=== PATIENT | male | born 1935 | race Caucasian/White ===

== ENCOUNTER → 2017-05-25 | Outpatient (CLI) | payer OTHER ==
[~2017-05-25] MED LIST: ACET500 PO; AMOX500 PO; ARTTEAOPSB OP; BENGAY113 GM TOP; BENZ100A PO; CAPHYD PO; CITA20 PO; CLIN300 PO; CYAN1000 PO; CYAN500 PO; Cerovite Advan1 EACH PO; DIPH50 PO; DIVA500EC PO; DOXY100 PO; DULERA 100 MCG/13 GM INH; ERGO50000 PO; EXELON1 EACH TOP; Exelon1 EACH; FERR325 PO; FURO20 PO; FURO40 PO; GABA300 PO; Geritol Comple1 EACH; HYDCHL25 PO; Haldol 5 mg Tab5 MG PO; IBUP400 PO; IRON150C PO; Keflex500 MG PO; LAMO100 PO; LAMO50 PO; LISI5; LISI5 PO; LOPE2C PO; MELA3 PO; METF500; METF500 PO; METF850 PO; MULVITMINF PO; NAPR220 PO; NIFE30ER; NIFE60ER PO; NIFEDICAL PO; Neosporin + P28.3 GM TOP; Nifedical Xl60 MG; OMEP40CA12; OMEP40CA12 PO; OMEPRAZOLE MAGN20 MG PO; OSEL75CA PO; Omeprazole20 M1 PO; PAIN & FEVER500 MG PO; POTA10T PO; PRED5 PO; PROP80ER PO; Phenergan Vc-C120 ML PO; QUET25 PO; QUETIAPINE FUMA50 MG PO; ROBITUSSIN COU118 M1 PO; TAMS.4ER PO; TUSSIN DM CLEA; TUSSIN DM CLEA PO; Triamcinolone A15 G3; Tylenol325 MG PO; UROXATRAL PO; VITAMIN D250000 UNIT; Zithromax250 MG PO; [UNRECOGNIZED DRUG - CODE]; [UNRECOGNIZED DRUG - CODE] TOP; [UNRECOGNIZED DRUG - MIXTURE]; [UNRECOGNIZED DRUG - MIXTURE] TOP; [UNRECOGNIZED DRUG - OTHER] TOP
[2017-05-25 14:38] LABS: Source, Urine Clean Catch
[2017-05-25 15:22] LABS: Bilirubin, Urine Neg (Neg); Blood, Urine Neg (Neg); Glucose Qualitative, Urine Neg (Neg); Ketones, Urine Neg (Neg); Leukocyte Esterase, Urine Neg (Neg); Nitrite, Urine Neg (Neg); Protein, Urine Neg (Neg); Urobilinogen, Urine NORM (Normal)
[2017-05-25 15:37] LABS: Appearance, Urine Clear (Clear); Color, Urine Yellow (P-Yellow)
== END | disposition home or self-care (01) ==
LOC: LAB 14:37
PROVIDERS: Radiology Radiation Oncology
DX: C61 Malignant neoplasm of prostate (principal); R39.15 Urgency of urination; R30.0 Dysuria
CPT/HCPCS: 81003

== ENCOUNTER 2017-10-20 18:09 | Emergency (ER) | payer OTHER ==
[~2017-10-20] VITALS: Ht 172.7 cm; Wt 83.9 kg
[~2017-10-20 18:09] MED LIST changes: +ACET325; -Keflex500 MG PO; +LAMO100; +LOPE2C; -Neosporin + P28.3 GM TOP
[2017-10-20] MEDS ORDERED: QUET25 PO (19:22)
== END 2017-10-20 19:27 | disposition home or self-care (01) ==
LOC: ER 18:09
DX: R13.10 Dysphagia, unspecified (principal); I12.9 Hypertensive chronic kidney disease with stage 1 through stage 4 chronic kidney disease, or unspecified chronic kidney disease; E11.22 Type 2 diabetes mellitus with diabetic chronic kidney disease; N18.9 Chronic kidney disease, unspecified; J44.9 Chronic obstructive pulmonary disease, unspecified; F03.90 Unspecified dementia, unspecified severity, without behavioral disturbance, psychotic disturbance, mood disturbance, and anxiety; Z79.899 Other long term (current) drug therapy; Z87.891 Personal history of nicotine dependence

== ENCOUNTER 2017-11-03 00:18 | Emergency (ER) | payer OTHER ==
[~2017-11-03] VITALS: Ht 182.9 cm; Wt 83.9 kg
[~2017-11-03 00:18] MED LIST changes: -ACET325; -LAMO100; -LOPE2C
[2017-11-03 02:25] LABS: Calcium, Ionized (POC) 1.18 mmol/L (1.10-1.46); Chloride (POC) 105 mmol/L (98-108); Creatinine (POC) 1.9 mg/dL (0.8-1.3); Glucose (ISTAT POC) 126 mg/dL (70-99); Hemoglobin (POC) 10.5 g/dL (13.5-17.5); Potassium (POC) 4.6 mmol/L (3.5-5.5); Sodium (POC) 138 mmol/L (135-148); Total CO2 (POC) 22 mmol/L (21-32)
== END 2017-11-03 03:49 | disposition home or self-care (01) ==
LOC: ER 00:18
PROVIDERS: Emergency Medicine
DX: K58.0 Irritable bowel syndrome with diarrhea (principal); F41.9 Anxiety disorder, unspecified; Z79.899 Other long term (current) drug therapy; Z87.891 Personal history of nicotine dependence
CPT/HCPCS: 80047; 85014; 96360; 99283; J7030

== ENCOUNTER 2017-11-20 11:14 | Emergency (ER) | payer OTHER ==
[~2017-11-20] VITALS: Ht 180.3 cm; Wt 82.5 kg
[2017-11-20 12:06] LABS: BASOPHILS ABSOLUTE AUTO 0.03 K/mm3 (0.00-0.23); BASOPHILS PERCENT AUTO 0 % (0-2); EOSINOPHILS ABSOLUTE AUTO 0.54 K/mm3 (0.00-0.68); EOSINOPHILS PERCENT AUTO 7 % (0-6); Hematocrit 33.6 % (37.0-53.0); Hemoglobin 10.6 g/dL (13.5-17.5); IMMATURE GRAN ABSOLUTE AUTO 0.03 K/mm3 (0.00-0.10); IMMATURE GRAN PERCENT AUTO 0 % (0-1); LYMPHOCYTES ABSOLUTE AUTO 0.77 K/mm3 (0.84-5.20); LYMPHOCYTES PERCENT AUTO 10 % (21-46); MONOCYTES ABSOLUTE AUTO 1.21 K/mm3 (0.16-1.47); MONOCYTES PERCENT AUTO 16 % (4-13); Mean Corpuscular HGB 27.1 pg (26.0-34.0); Mean Corpuscular HGB Conc 31.5 g/dL (31.5-36.5); Mean Corpuscular Volume 86 fL (80-100); Mean Platelet Volume 10.3 fL (9.1-12.4); NEUTROPHILS ABSOLUTE AUTO 5.16 K/mm3 (1.96-9.15); NEUTROPHILS PERCENT AUTO 67 % (41-73); Platelet Count 119 K/mm3 (150-400); RDW Coefficient Variation 13.9 % (11.7-14.2); RDW Standard Deviation 43.3 fL (35.1-46.3); Red Blood Cell Count 3.91 M/mm3 (4.30-5.90); White Blood Cell Count 7.74 K/mm3 (4.00-11.30)
[2017-11-20 12:18] LABS: Albumin, Blood 3.7 g/dL (3.4-5.0); Albumin/Globulin Ratio 1.3 (0.8-1.8); Bilirubin, Total 0.9 mg/dL (0.1-1.0); Bun/Creatinine Ratio 19.6 (12.0-20.0); Calcium, Blood 8.6 mg/dL (8.5-10.1); Creatinine, Blood 1.58 mg/dL (0.60-1.20); Globulin, Blood 2.9 g/dL (2.2-4.0); Potassium, Blood 4.9 mmol/L (3.5-5.5); Total Protein, Blood 6.6 g/dL (6.4-8.2)
[2017-11-20 14:38] LABS: Source, Urine Clean Catch
[2017-11-20 14:54] LABS: Bilirubin, Urine Neg (Neg); Blood, Urine Neg (Neg); Glucose Qualitative, Urine Neg (Neg); Ketones, Urine Neg (Neg); Leukocyte Esterase, Urine Neg (Neg); Nitrite, Urine Neg (Neg); Protein, Urine Neg (Neg); Urobilinogen, Urine NORM (Normal)
[2017-11-20] MEDS ORDERED: Neosporin + P28.3 GM TOP (15:20)
[2017-11-20 15:31] LABS: Appearance, Urine Clear (Clear); Color, Urine Yellow (P-Yellow)
== END 2017-11-20 15:27 | disposition home or self-care (01) ==
LOC: ER 11:14
PROVIDERS: Emergency Medicine
DX: S41.111A Laceration without foreign body of right upper arm, initial encounter (principal); S51.811A Laceration without foreign body of right forearm, initial encounter; F41.9 Anxiety disorder, unspecified; E11.9 Type 2 diabetes mellitus without complications; F03.90 Unspecified dementia, unspecified severity, without behavioral disturbance, psychotic disturbance, mood disturbance, and anxiety; I10 Essential (primary) hypertension; Z79.899 Other long term (current) drug therapy; Z87.891 Personal history of nicotine dependence; W01.0XXA Fall on same level from slipping, tripping and stumbling without subsequent striking against object, initial encounter
CPT/HCPCS: 36415; 80053; 81003; 85025; 93005; 93010; 99283

== ENCOUNTER 2018-05-01 00:15 | Day surgery (SDC) | payer OTHER ==
[~2018-05-01 00:15] MED LIST changes: +Keflex500 MG PO; +Neosporin + P28.3 GM TOP
== END 2018-05-01 22:39 | disposition home or self-care (01) ==
LOC: WOUND 00:15
DX: Z85.46 Personal history of malignant neoplasm of prostate (principal); Z92.3 Personal history of irradiation; R31.0 Gross hematuria
CPT/HCPCS: G0463

== ENCOUNTER 2018-05-28 00:44 | Day surgery (SDC) | payer OTHER | END 2018-05-28 22:59 | disposition home or self-care (01) | LOC: HBO 00:44 | DX: N30.41 Irradiation cystitis with hematuria (principal); R31.0 Gross hematuria; Z85.46 Personal history of malignant neoplasm of prostate; Z92.3 Personal history of irradiation | CPT/HCPCS: 82947; G0277 ==

== ENCOUNTER 2018-05-29 00:31 | Day surgery (SDC) | payer OTHER | END 2018-05-29 22:34 | disposition home or self-care (01) | LOC: HBO 00:31 | DX: N30.41 Irradiation cystitis with hematuria (principal); R31.0 Gross hematuria; Z85.46 Personal history of malignant neoplasm of prostate; Z92.3 Personal history of irradiation | CPT/HCPCS: 82947; G0277 ==

== ENCOUNTER 2018-05-30 00:17 | Day surgery (SDC) | payer OTHER | END 2018-05-30 22:35 | disposition home or self-care (01) | LOC: HBO 00:17 | DX: N30.41 Irradiation cystitis with hematuria (principal); R31.0 Gross hematuria; Z85.46 Personal history of malignant neoplasm of prostate; Z92.3 Personal history of irradiation | CPT/HCPCS: 82947; G0277 ==

== ENCOUNTER 2018-05-31 00:21 | Day surgery (SDC) | payer OTHER | END 2018-05-31 23:56 | disposition home or self-care (01) | LOC: HBO 00:21 | DX: N30.41 Irradiation cystitis with hematuria (principal); Z85.46 Personal history of malignant neoplasm of prostate; Z92.3 Personal history of irradiation; R31.0 Gross hematuria | CPT/HCPCS: 82947; G0277 ==

== ENCOUNTER 2018-06-04 09:27 | Day surgery (SDC) | payer OTHER | END 2018-06-04 22:36 | disposition home or self-care (01) | LOC: HBO 09:27 | PROC: 5A05221 Extracorporeal Hyperbaric Oxygenation, Continuous (ICD-10-PCS; principal; 2018-06-04) | DX: N30.41 Irradiation cystitis with hematuria (principal); Z85.46 Personal history of malignant neoplasm of prostate; Z92.3 Personal history of irradiation; R31.0 Gross hematuria | CPT/HCPCS: 82947; G0463 ==

== ENCOUNTER 2018-06-21 09:45 | Day surgery (SDC) | payer OTHER | END 2018-06-21 22:46 | disposition home or self-care (01) | LOC: HBO 09:45 | DX: N30.41 Irradiation cystitis with hematuria (principal); R31.0 Gross hematuria; Z85.46 Personal history of malignant neoplasm of prostate; Z92.3 Personal history of irradiation | CPT/HCPCS: 82947; G0277 ==

== ENCOUNTER 2018-06-22 10:00 | Day surgery (SDC) | payer OTHER | END 2018-06-22 22:50 | disposition home or self-care (01) | LOC: HBO 10:00 | PROC: 5A05221 Extracorporeal Hyperbaric Oxygenation, Continuous (ICD-10-PCS; principal; 2018-06-22) | DX: N30.41 Irradiation cystitis with hematuria (principal); Z85.46 Personal history of malignant neoplasm of prostate; Z92.3 Personal history of irradiation | CPT/HCPCS: 82947; G0277 ==

== ENCOUNTER 2018-06-25 10:00 | Day surgery (SDC) | payer OTHER | END 2018-06-25 22:39 | disposition home or self-care (01) | LOC: HBO 10:00 → WOUND 13:06 → HBO 13:43 | PROC: 5A05221 Extracorporeal Hyperbaric Oxygenation, Continuous (ICD-10-PCS; principal; 2018-06-25) | DX: N30.41 Irradiation cystitis with hematuria (principal); Z85.46 Personal history of malignant neoplasm of prostate; Z92.3 Personal history of irradiation; R31.0 Gross hematuria | CPT/HCPCS: 82947; G0277 ==

== ENCOUNTER 2018-06-26 00:33 | Day surgery (SDC) | payer OTHER | END 2018-06-26 22:36 | disposition home or self-care (01) | LOC: HBO 00:33 | DX: N30.41 Irradiation cystitis with hematuria (principal); Z85.46 Personal history of malignant neoplasm of prostate; Z92.3 Personal history of irradiation; R31.0 Gross hematuria | CPT/HCPCS: 82947; G0277 ==

== ENCOUNTER 2018-06-27 00:25 | Day surgery (SDC) | payer OTHER | END 2018-06-27 22:45 | disposition home or self-care (01) | LOC: HBO 00:25 | DX: N30.41 Irradiation cystitis with hematuria (principal); Z85.46 Personal history of malignant neoplasm of prostate; Z92.3 Personal history of irradiation; R31.0 Gross hematuria; R79.9 Abnormal finding of blood chemistry, unspecified | CPT/HCPCS: 82947; G0277 ==

== ENCOUNTER 2018-06-28 10:00 | Day surgery (SDC) | payer OTHER | END 2018-06-28 22:44 | disposition home or self-care (01) | LOC: HBO 10:00 | DX: N30.41 Irradiation cystitis with hematuria (principal); R31.0 Gross hematuria; Z85.46 Personal history of malignant neoplasm of prostate; Z92.3 Personal history of irradiation | CPT/HCPCS: 82947; G0277 ==

== ENCOUNTER 2018-06-29 09:20 | Day surgery (SDC) | payer OTHER | END 2018-06-29 23:08 | disposition home or self-care (01) | LOC: HBO 09:20 | DX: N30.41 Irradiation cystitis with hematuria (principal); R31.0 Gross hematuria; Z85.46 Personal history of malignant neoplasm of prostate; Z92.3 Personal history of irradiation; Z79.899 Other long term (current) drug therapy | CPT/HCPCS: 82947; G0277 ==

== ENCOUNTER 2018-07-02 00:28 | Day surgery (SDC) | payer OTHER | END 2018-07-02 22:58 | disposition home or self-care (01) | LOC: HBO 00:28 | DX: N30.41 Irradiation cystitis with hematuria (principal); Z85.46 Personal history of malignant neoplasm of prostate; Z92.3 Personal history of irradiation; R31.0 Gross hematuria; Z79.899 Other long term (current) drug therapy | CPT/HCPCS: 82947; G0277 ==

== ENCOUNTER 2018-07-03 00:10 | Day surgery (SDC) | payer OTHER | END 2018-07-03 22:40 | disposition home or self-care (01) | LOC: HBO 00:10 | DX: N30.41 Irradiation cystitis with hematuria (principal); Z85.46 Personal history of malignant neoplasm of prostate; Z92.3 Personal history of irradiation; R31.0 Gross hematuria; Z79.899 Other long term (current) drug therapy | CPT/HCPCS: 82947; G0277 ==

== ENCOUNTER 2018-07-04 00:30 | Day surgery (SDC) | payer OTHER | END 2018-07-04 22:37 | disposition home or self-care (01) | LOC: HBO 00:30 | DX: R31.0 Gross hematuria (principal); N30.41 Irradiation cystitis with hematuria; Z85.46 Personal history of malignant neoplasm of prostate; Z92.3 Personal history of irradiation; Z79.899 Other long term (current) drug therapy | CPT/HCPCS: 82947; G0277 ==

== ENCOUNTER 2018-07-05 00:14 | Day surgery (SDC) | payer OTHER | END 2018-07-05 22:35 | disposition home or self-care (01) | LOC: HBO 00:14 | DX: N30.41 Irradiation cystitis with hematuria (principal); Z85.46 Personal history of malignant neoplasm of prostate; Z92.3 Personal history of irradiation; Z79.899 Other long term (current) drug therapy; R31.0 Gross hematuria | CPT/HCPCS: 82947; G0277 ==

== ENCOUNTER 2018-07-06 10:00 | Day surgery (SDC) | payer OTHER | END 2018-07-06 23:13 | disposition home or self-care (01) | LOC: HBO 10:00 | DX: N30.41 Irradiation cystitis with hematuria (principal); R31.0 Gross hematuria; Z85.46 Personal history of malignant neoplasm of prostate; Z92.3 Personal history of irradiation; Z79.899 Other long term (current) drug therapy | CPT/HCPCS: 82947; G0277 ==

== ENCOUNTER 2018-07-12 10:00 | Day surgery (SDC) | payer OTHER | END 2018-07-13 13:10 | disposition home or self-care (01) | LOC: HBO 10:00 | DX: N30.41 Irradiation cystitis with hematuria (principal); R31.0 Gross hematuria; Z85.46 Personal history of malignant neoplasm of prostate; Z92.3 Personal history of irradiation; Z79.899 Other long term (current) drug therapy | CPT/HCPCS: 82947; G0277 ==

== ENCOUNTER 2018-07-13 09:11 | Day surgery (SDC) | payer OTHER | END 2018-07-13 12:00 | disposition home or self-care (01) | LOC: HBO 09:11 | DX: N30.41 Irradiation cystitis with hematuria (principal); R31.0 Gross hematuria; R73.09 Other abnormal glucose; Z85.46 Personal history of malignant neoplasm of prostate; Z92.3 Personal history of irradiation | CPT/HCPCS: 82947; G0277 ==

== ENCOUNTER 2018-07-24 00:18 | Day surgery (SDC) | payer OTHER | END 2018-07-24 22:37 | disposition home or self-care (01) | LOC: HBO 00:18 | DX: N30.41 Irradiation cystitis with hematuria (principal); Z85.46 Personal history of malignant neoplasm of prostate; Z92.3 Personal history of irradiation; R31.0 Gross hematuria | CPT/HCPCS: 82947; G0277 ==

== ENCOUNTER 2018-07-25 08:55 | Day surgery (SDC) | payer OTHER | END 2018-07-25 22:46 | disposition home or self-care (01) | LOC: HBO 08:55 | DX: N30.41 Irradiation cystitis with hematuria (principal); Z85.46 Personal history of malignant neoplasm of prostate; Z92.3 Personal history of irradiation | CPT/HCPCS: 82947; G0277 ==

== ENCOUNTER 2018-07-26 00:30 | Day surgery (SDC) | payer OTHER | END 2018-07-26 12:00 | disposition home or self-care (01) | LOC: WOUND 00:30 → HBO 00:30 → WOUND 11:06 | DX: N30.41 Irradiation cystitis with hematuria (principal); Z92.3 Personal history of irradiation; Z85.46 Personal history of malignant neoplasm of prostate | CPT/HCPCS: 82947; G0277 ==

== ENCOUNTER 2018-07-27 00:41 | Day surgery (SDC) | payer OTHER | END 2018-07-27 12:00 | disposition home or self-care (01) | LOC: HBO 00:41 → WOUND 11:26 → HBO 11:28 | DX: N30.41 Irradiation cystitis with hematuria (principal); Z85.46 Personal history of malignant neoplasm of prostate; Z92.3 Personal history of irradiation; R31.0 Gross hematuria | CPT/HCPCS: 82947; G0277 ==

== ENCOUNTER → 2018-09-25 | Outpatient (CLI) | payer OTHER ==
[~2018-09-25] MED LIST changes: +Exelon1 EAC1 TD; +Ferrous Sulfat325 M2 PO; +INDERAL XL80 MG PO; +Loperamide2 MG PO; +Neurontin 300300 MG PO; +QUET100 PO; +VITAMIN B-121000 MCG PO
== END | disposition home or self-care (01) ==
LOC: PLD 13:50 → LAB SHORT 13:50
DX: D04.39 Carcinoma in situ of skin of other parts of face (principal)
CPT/HCPCS: 88305

== ENCOUNTER 2018-10-03 14:33 | Inpatient (IN) | payer OTHER ==
[~2018-10-03] VITALS: Ht 182.9 cm; Wt 85.8 kg
[2018-10-03 16:01] LABS: Hematocrit 33.2 % (37.0-53.0); Hemoglobin 10.1 g/dL (13.5-17.5); Mean Corpuscular HGB 26.2 pg (26.0-34.0); Mean Corpuscular HGB Conc 30.4 g/dL (31.5-36.5); Mean Corpuscular Volume 86 fL (80-100); Mean Platelet Volume 10.8 fL (9.1-12.4); Platelet Count 113 K/mm3 (150-400); RDW Coefficient Variation 15.8 % (11.7-14.2); RDW Standard Deviation 49.5 fL (35.1-46.3); Red Blood Cell Count 3.86 M/mm3 (4.30-5.90); White Blood Cell Count 10.28 K/mm3 (4.00-11.30)
[2018-10-03] MEDS ORDERED: Efudex40 GM TOP (16:07)
[2018-10-03] MEDS ORDERED: Hydrocortiso453.6 GM TOP (16:09)
[2018-10-03] MEDS ORDERED: Mupirocin22 GM TOP (16:09)
[2018-10-03 16:20] LABS: International Normalized Ratio 1.07; Prothrombin Time Results 11.3 Sec (9.7-11.5)
[2018-10-03 16:24] LABS: Albumin, Blood 3.2 g/dL (3.4-5.0); Albumin/Globulin Ratio 0.9 (0.8-1.8); Bilirubin, Total 1.7 mg/dL (0.1-1.0); Calcium, Blood 8.4 mg/dL (8.5-10.1); Creatinine, Blood 1.86 mg/dL (0.60-1.20); Globulin, Blood 3.4 g/dL (2.2-4.0); Potassium, Blood 4.5 mmol/L (3.5-5.5); Total Protein, Blood 6.6 g/dL (6.4-8.2)
[2018-10-03 16:37] LABS: BAND PERCENT MAN 3 % (0-8); BASOPHILS PERCENT MAN 0 % (0-2); EOSINOPHILS PERCENT MAN 1 % (0-6); LYMPHOCYTES ABSOLUTE MAN 0.41 K/mm3 (0.84-5.20); LYMPHOCYTES PERCENT MAN 4 % (21-46); MONOCYTES ABSOLUTE MAN 1.33 K/mm3 (0.16-1.47); MONOCYTES PERCENT MAN 13 % (4-13); NEUTROPHILS ABSOLUTE MAN 8.42 K/mm3 (1.96-9.15); SEG NEUTROPHILS PERCENT MAN 79 % (41-73); TOTAL CELLS COUNTED 100
[2018-10-03 17:51] LABS: Source, Urine Catheter
[2018-10-03 18:10] LABS: Bilirubin, Urine Neg (Neg); Blood, Urine 4+ (Neg); Glucose Qualitative, Urine Neg (Neg); Ketones, Urine Neg (Neg); Leukocyte Esterase, Urine 3+ (Neg); Nitrite, Urine Pos (Neg); Protein, Urine 3+ (Neg); Urobilinogen, Urine 2+ (Normal)
[2018-10-03 18:23] LABS: Appearance, Urine Cloudy (Clear); Color, Urine Yellow (P-Yellow)
[2018-10-03 18:26] LABS: Bacteria Many /hpf; Squamous Epithelial Cells Not Seen /hpf (Few); White Blood Cells, Urine TNTC /hpf (0-5)
[2018-10-04 05:01] LABS: BASOPHILS ABSOLUTE AUTO 0.01 K/mm3 (0.00-0.23); BASOPHILS PERCENT AUTO 0 % (0-2); EOSINOPHILS PERCENT AUTO 0 % (0-6); Hematocrit 27.3 % (37.0-53.0); Hemoglobin 8.3 g/dL (13.5-17.5); IMMATURE GRAN ABSOLUTE AUTO 0.08 K/mm3 (0.00-0.10); IMMATURE GRAN PERCENT AUTO 1 % (0-1); LYMPHOCYTES ABSOLUTE AUTO 0.46 K/mm3 (0.84-5.20); LYMPHOCYTES PERCENT AUTO 4 % (21-46); MONOCYTES ABSOLUTE AUTO 2.57 K/mm3 (0.16-1.47); MONOCYTES PERCENT AUTO 22 % (4-13); Mean Corpuscular HGB 26.7 pg (26.0-34.0); Mean Corpuscular HGB Conc 30.4 g/dL (31.5-36.5); Mean Corpuscular Volume 88 fL (80-100); Mean Platelet Volume 10.7 fL (9.1-12.4); NEUTROPHILS ABSOLUTE AUTO 8.47 K/mm3 (1.96-9.15); NEUTROPHILS PERCENT AUTO 73 % (41-73); Platelet Count 95 K/mm3 (150-400); RDW Coefficient Variation 15.9 % (11.7-14.2); RDW Standard Deviation 50.9 fL (35.1-46.3); Red Blood Cell Count 3.11 M/mm3 (4.30-5.90); White Blood Cell Count 11.59 K/mm3 (4.00-11.30)
[2018-10-04 05:31] LABS: Bun/Creatinine Ratio 21.5 (12.0-20.0); Calcium, Blood 7.8 mg/dL (8.5-10.1); Creatinine, Blood 1.91 mg/dL (0.60-1.20)
[2018-10-06 05:33] LABS: BASOPHILS ABSOLUTE AUTO 0.01 K/mm3 (0.00-0.23); BASOPHILS PERCENT AUTO 0 % (0-2); EOSINOPHILS ABSOLUTE AUTO 0.15 K/mm3 (0.00-0.68); EOSINOPHILS PERCENT AUTO 3 % (0-6); Hematocrit 27.5 % (37.0-53.0); Hemoglobin 8.4 g/dL (13.5-17.5); IMMATURE GRAN ABSOLUTE AUTO 0.04 K/mm3 (0.00-0.10); IMMATURE GRAN PERCENT AUTO 1 % (0-1); LYMPHOCYTES PERCENT AUTO 7 % (21-46); MONOCYTES ABSOLUTE AUTO 1.17 K/mm3 (0.16-1.47); MONOCYTES PERCENT AUTO 21 % (4-13); Mean Corpuscular HGB 26.1 pg (26.0-34.0); Mean Corpuscular HGB Conc 30.5 g/dL (31.5-36.5); NEUTROPHILS ABSOLUTE AUTO 3.76 K/mm3 (1.96-9.15); NEUTROPHILS PERCENT AUTO 68 % (41-73); Platelet Count 101 K/mm3 (150-400); RDW Coefficient Variation 15.9 % (11.7-14.2); RDW Standard Deviation 50.3 fL (35.1-46.3); Red Blood Cell Count 3.22 M/mm3 (4.30-5.90); White Blood Cell Count 5.53 K/mm3 (4.00-11.30)
[2018-10-06 05:51] LABS: Mean Corpuscular Volume 85 fL (80-100)
[2018-10-06 05:57] LABS: Bun/Creatinine Ratio 27.6 (12.0-20.0); Calcium, Blood 8.3 mg/dL (8.5-10.1); Creatinine, Blood 1.81 mg/dL (0.60-1.20); Potassium, Blood 4.1 mmol/L (3.5-5.5)
[2018-10-06] MEDS ORDERED: LEVFLO500 PO (14:18)
[2018-10-06] MEDS ORDERED: MIRALAX17 GM PO (14:18)
== END 2018-10-06 15:38 | disposition home or self-care (01) | DRG 689 ==
LOC: ER 14:33 → MEDS 19:51 → ENPENDDIS 10-06 14:00 → MEDS 10-06 15:38
PROVIDERS: Internal Medicine; Physician Assistant; ADMIT Hospitalist
DX: N39.0 Urinary tract infection, site not specified (principal); G92 Toxic encephalopathy; I13.0 Hypertensive heart and chronic kidney disease with heart failure and stage 1 through stage 4 chronic kidney disease, or unspecified chronic kidney disease; I50.32 Chronic diastolic (congestive) heart failure; N18.3 Chronic kidney disease, stage 3 (moderate); E11.22 Type 2 diabetes mellitus with diabetic chronic kidney disease; Z66 Do not resuscitate; D50.9 Iron deficiency anemia, unspecified; J44.9 Chronic obstructive pulmonary disease, unspecified; G20 Parkinson's disease; F02.80 Dementia in other diseases classified elsewhere, unspecified severity, without behavioral disturbance, psychotic disturbance, mood disturbance, and anxiety; I34.0 Nonrheumatic mitral (valve) insufficiency; B96.20 Unspecified Escherichia coli [E. coli] as the cause of diseases classified elsewhere; F31.9 Bipolar disorder, unspecified; N40.1 Benign prostatic hyperplasia with lower urinary tract symptoms; G25.0 Essential tremor; Z87.891 Personal history of nicotine dependence
CPT/HCPCS: 36415; 51701; 70450; 71046; 72125; 80048; 80053; 81001; 83605; 85025; 85610; 85730; 87040; 87077; 87086; 87186; 93005; 93010; 96361-59; 96365-59; 99285-25; J0696; J1650; J7030; J7050

== ENCOUNTER 2019-07-16 11:46 | Emergency (ER) | payer OTHER ==
[~2019-07-16] VITALS: Ht 180.3 cm; Wt 81.7 kg
[~2019-07-16 11:46] MED LIST changes: +CEPH500 PO; +Efudex40 GM TOP; +Hydrocortiso453.6 GM TOP; -INDERAL XL80 MG PO; +LEVFLO500 PO; +MIRALAX17 GM PO; +Mupirocin22 GM TOP; +OMEPRAZOLE20 MG PO; +PROP60 PO; -VITAMIN B-121000 MCG PO
[2019-07-16 12:39] LABS: BASOPHILS ABSOLUTE AUTO 0.03 K/mm3 (0.00-0.23); BASOPHILS PERCENT AUTO 0 % (0-2); EOSINOPHILS ABSOLUTE AUTO 0.38 K/mm3 (0.00-0.68); EOSINOPHILS PERCENT AUTO 4 % (0-6); Hematocrit 39.7 % (37.0-53.0); Hemoglobin 12.4 g/dL (13.5-17.5); IMMATURE GRAN ABSOLUTE AUTO 0.05 K/mm3 (0.00-0.10); IMMATURE GRAN PERCENT AUTO 1 % (0-1); LYMPHOCYTES ABSOLUTE AUTO 1.45 K/mm3 (0.84-5.20); LYMPHOCYTES PERCENT AUTO 13 % (21-46); MONOCYTES ABSOLUTE AUTO 1.35 K/mm3 (0.16-1.47); MONOCYTES PERCENT AUTO 12 % (4-13); Mean Corpuscular HGB 28.6 pg (26.0-34.0); Mean Corpuscular HGB Conc 31.2 g/dL (31.5-36.5); Mean Corpuscular Volume 92 fL (80-100); Mean Platelet Volume 10.7 fL (9.1-12.4); NEUTROPHILS ABSOLUTE AUTO 7.66 K/mm3 (1.96-9.15); NEUTROPHILS PERCENT AUTO 70 % (41-73); Platelet Count 116 K/mm3 (150-400); RDW Coefficient Variation 13.4 % (11.7-14.2); Red Blood Cell Count 4.33 M/mm3 (4.30-5.90); White Blood Cell Count 10.92 K/mm3 (4.00-11.30)
[2019-07-16 13:04] LABS: Alanine Aminotransfer (ALT/SGP 17 U/L (12-78); Albumin, Blood 2.9 g/dL (3.4-5.0); Albumin/Globulin Ratio 1.2 (0.8-1.8); Alk Phos 82 U/L (50-136); Anion Gap 6 mmol/L (6-16); Aspartate Aminotrans (AST/SGOT 19 U/L (12-37); Bilirubin, Total 0.5 mg/dL (0.1-1.0); Blood Urea Nitrogen 29 mg/dL (8-24); Bun/Creatinine Ratio 17.9 (12.0-20.0); CO2, Blood 24 mmol/L (21-32); Calcium, Blood 8.1 mg/dL (8.5-10.1); Chloride, Blood 108 mmol/L (98-108); Creatinine, Blood 1.62 mg/dL (0.60-1.20); Globulin, Blood 2.5 g/dL (2.2-4.0); Glomerular Filtration Rate 43 (60-); Glucose, Blood 134 mg/dL (70-99); Potassium, Blood 4.8 mmol/L (3.5-5.5); Sodium, Blood 138 mmol/L (136-145); Total Protein, Blood 5.4 g/dL (6.4-8.2); Troponin I <0.015 ng/mL (0.000-0.040)
[2019-07-16] MEDS ORDERED: Anti-Diarrheal2 MG PO (14:02)
[2019-07-16] MEDS ORDERED: Zofran4 MG PO (14:02)
== END 2019-07-16 16:00 | disposition home or self-care (01) ==
LOC: ER 11:46
PROVIDERS: Emergency Medicine
DX: K52.9 Noninfective gastroenteritis and colitis, unspecified (principal); E86.0 Dehydration; E11.22 Type 2 diabetes mellitus with diabetic chronic kidney disease; I13.0 Hypertensive heart and chronic kidney disease with heart failure and stage 1 through stage 4 chronic kidney disease, or unspecified chronic kidney disease; N18.3 Chronic kidney disease, stage 3 (moderate); I50.32 Chronic diastolic (congestive) heart failure; Z79.899 Other long term (current) drug therapy; Z87.891 Personal history of nicotine dependence
CPT/HCPCS: 36415; 74176; 80053; 83690; 84484; 85025; 93005; 93010; J2405; J7030

== ENCOUNTER → 2019-09-17 | Outpatient (CLI) | payer OTHER ==
[~2019-09-17] MED LIST changes: +Anti-Diarrheal2 MG PO; +Zofran4 MG PO
== END | disposition home or self-care (01) ==
LOC: PLD 14:48 → LAB SHORT 14:48
DX: D48.5 Neoplasm of uncertain behavior of skin (principal)
CPT/HCPCS: 88305

== ENCOUNTER 2019-10-02 10:49 | Emergency (ER) | payer OTHER ==
[~2019-10-02] VITALS: Ht 177.8 cm; Wt 108.9 kg
[2019-10-02 11:33] LABS: BASOPHILS ABSOLUTE AUTO 0.03 K/mm3 (0.00-0.23); BASOPHILS PERCENT AUTO 0 % (0-2); EOSINOPHILS ABSOLUTE AUTO 0.65 K/mm3 (0.00-0.68); EOSINOPHILS PERCENT AUTO 6 % (0-6); Hematocrit 39.4 % (37.0-53.0); Hemoglobin 12.4 g/dL (13.5-17.5); IMMATURE GRAN ABSOLUTE AUTO 0.04 K/mm3 (0.00-0.10); IMMATURE GRAN PERCENT AUTO 0 % (0-1); LYMPHOCYTES ABSOLUTE AUTO 1.27 K/mm3 (0.84-5.20); LYMPHOCYTES PERCENT AUTO 12 % (21-46); MONOCYTES ABSOLUTE AUTO 1.09 K/mm3 (0.16-1.47); MONOCYTES PERCENT AUTO 10 % (4-13); Mean Corpuscular HGB 28.3 pg (26.0-34.0); Mean Corpuscular HGB Conc 31.5 g/dL (31.5-36.5); Mean Corpuscular Volume 90 fL (80-100); Mean Platelet Volume 10.8 fL (9.1-12.4); NEUTROPHILS ABSOLUTE AUTO 7.96 K/mm3 (1.96-9.15); NEUTROPHILS PERCENT AUTO 72 % (41-73); Platelet Count 131 K/mm3 (150-400); RDW Coefficient Variation 13.3 % (11.7-14.2); RDW Standard Deviation 43.6 fL (35.1-46.3); Red Blood Cell Count 4.38 M/mm3 (4.30-5.90); White Blood Cell Count 11.04 K/mm3 (4.00-11.30)
[2019-10-02] MEDS ORDERED: PROAIR RESPICL90 MCG IH (11:57)
[2019-10-02 11:59] LABS: Alanine Aminotransfer (ALT/SGP 18 U/L (12-78); Albumin, Blood 3.1 g/dL (3.4-5.0); Albumin/Globulin Ratio 1.1 (0.8-1.8); Alk Phos 76 U/L (50-136); Anion Gap 7 mmol/L (6-16); Aspartate Aminotrans (AST/SGOT 20 U/L (12-37); Bilirubin, Total 0.8 mg/dL (0.1-1.0); Blood Urea Nitrogen 31 mg/dL (8-24); Bun/Creatinine Ratio 17.1 (12.0-20.0); CO2, Blood 24 mmol/L (21-32); Chloride, Blood 107 mmol/L (98-108); Creatinine, Blood 1.81 mg/dL (0.60-1.20); Globulin, Blood 2.8 g/dL (2.2-4.0); Glomerular Filtration Rate 38 (60-); Glucose, Blood 132 mg/dL (70-99); Potassium, Blood 4.8 mmol/L (3.5-5.5); Sodium, Blood 138 mmol/L (136-145); Total Protein, Blood 5.9 g/dL (6.4-8.2); Troponin I <0.015 ng/mL (0.000-0.040)
[2019-10-02] MEDS ORDERED: LOPE2C PO (12:01)
[2019-10-02] MEDS ORDERED: ONDA4ODT SL (13:03)
== END 2019-10-02 15:08 | disposition home or self-care (01) ==
LOC: ER 10:49
PROVIDERS: Emergency Medicine
DX: R11.2 Nausea with vomiting, unspecified (principal); I95.9 Hypotension, unspecified; I13.0 Hypertensive heart and chronic kidney disease with heart failure and stage 1 through stage 4 chronic kidney disease, or unspecified chronic kidney disease; E11.22 Type 2 diabetes mellitus with diabetic chronic kidney disease; N18.3 Chronic kidney disease, stage 3 (moderate); I50.32 Chronic diastolic (congestive) heart failure; F31.9 Bipolar disorder, unspecified; N40.0 Benign prostatic hyperplasia without lower urinary tract symptoms; G20 Parkinson's disease; F02.80 Dementia in other diseases classified elsewhere, unspecified severity, without behavioral disturbance, psychotic disturbance, mood disturbance, and anxiety; Z79.899 Other long term (current) drug therapy; Z87.891 Personal history of nicotine dependence
CPT/HCPCS: 80053; 83690; 84484; 85025; 93005; 93010; 96360; 99284-25; J7030

== ENCOUNTER → 2020-03-13 | Outpatient (CLI) | payer OTHER ==
[~2020-03-13] MED LIST changes: +ONDA4ODT SL; +PROAIR RESPICL90 MCG IH
== END | disposition home or self-care (01) ==
LOC: LAB SRC 10:15 → LAB SHORT 10:15 → LAB FUT 11-07 16:05
DX: E11.9 Type 2 diabetes mellitus without complications (principal)
CPT/HCPCS: 82043

== ENCOUNTER 2020-06-17 12:19 | Emergency (ER) | payer OTHER ==
[~2020-06-17] VITALS: Ht 180.3 cm; Wt 72.6 kg
[2020-06-17 13:10] LABS: Calcium, Ionized (POC) 0.98 mmol/L (1.10-1.46); Chloride (POC) 101 mmol/L (98-108); Creatinine (POC) 2.2 mg/dL (0.8-1.3); Glucose (ISTAT POC) 112 mg/dL (70-99); Hemoglobin (POC) 11.6 g/dL (13.5-17.5); Potassium (POC) 4.5 mmol/L (3.5-5.5); Sodium (POC) 132 mmol/L (135-148); Total CO2 (POC) 23 mmol/L (21-32)
[2020-06-17 13:35] LABS: BASOPHILS ABSOLUTE AUTO 0.02 K/mm3 (0.00-0.23); BASOPHILS PERCENT AUTO 0 % (0-2); EOSINOPHILS ABSOLUTE AUTO 0.19 K/mm3 (0.00-0.68); EOSINOPHILS PERCENT AUTO 2 % (0-6); Hematocrit 36.4 % (37.0-53.0); Hemoglobin 11.8 g/dL (13.5-17.5); IMMATURE GRAN ABSOLUTE AUTO 0.03 K/mm3 (0.00-0.10); IMMATURE GRAN PERCENT AUTO 0 % (0-1); LYMPHOCYTES ABSOLUTE AUTO 1.37 K/mm3 (0.84-5.20); LYMPHOCYTES PERCENT AUTO 13 % (21-46); MONOCYTES ABSOLUTE AUTO 1.48 K/mm3 (0.16-1.47); MONOCYTES PERCENT AUTO 14 % (4-13); Mean Corpuscular HGB 28.6 pg (26.0-34.0); Mean Corpuscular HGB Conc 32.4 g/dL (31.5-36.5); Mean Corpuscular Volume 88 fL (80-100); Mean Platelet Volume 10.9 fL (9.1-12.4); NEUTROPHILS ABSOLUTE AUTO 7.61 K/mm3 (1.96-9.15); NEUTROPHILS PERCENT AUTO 71 % (41-73); Platelet Count 136 K/mm3 (150-400); RDW Coefficient Variation 13.2 % (11.7-14.2); Red Blood Cell Count 4.13 M/mm3 (4.30-5.90)
[2020-06-17 13:50] LABS: Alanine Aminotransfer (ALT/SGP 13 U/L (12-78); Albumin, Blood 3.2 g/dL (3.4-5.0); Albumin/Globulin Ratio 1.1 (0.8-1.8); Alk Phos 78 U/L (50-136); Anion Gap 6 mmol/L (6-16); Aspartate Aminotrans (AST/SGOT 16 U/L (12-37); Bilirubin, Total 0.7 mg/dL (0.1-1.0); Blood Urea Nitrogen 34 mg/dL (8-24); Bun/Creatinine Ratio 17.5 (12.0-20.0); CO2, Blood 27 mmol/L (21-32); Calcium, Blood 8.4 mg/dL (8.5-10.1); Chloride, Blood 102 mmol/L (98-108); Creatinine, Blood 1.94 mg/dL (0.60-1.20); Globulin, Blood 2.8 g/dL (2.2-4.0); Glomerular Filtration Rate 35 (60-); Glucose, Blood 115 mg/dL (70-99); Potassium, Blood 4.7 mmol/L (3.5-5.5); Sodium, Blood 135 mmol/L (136-145); Troponin I <0.015 ng/mL (0.000-0.040)
== END 2020-06-17 15:24 | disposition home or self-care (01) ==
LOC: ER 12:19
PROVIDERS: Emergency Medicine
DX: I95.9 Hypotension, unspecified (principal); I13.0 Hypertensive heart and chronic kidney disease with heart failure and stage 1 through stage 4 chronic kidney disease, or unspecified chronic kidney disease; I50.32 Chronic diastolic (congestive) heart failure; E11.22 Type 2 diabetes mellitus with diabetic chronic kidney disease; N18.30 Chronic kidney disease, stage 3 unspecified; Z87.891 Personal history of nicotine dependence; Z87.442 Personal history of urinary calculi; Z79.899 Other long term (current) drug therapy
CPT/HCPCS: 36415; 71045; 80047; 80053; 83605; 83880; 84484; 85014; 85025; 93005; 93010; 99285-25; J7030

== ENCOUNTER 2020-09-02 19:23 | Emergency (ER) | payer OTHER ==
[~2020-09-02] VITALS: Ht 177.8 cm; Wt 79.4 kg
[2020-09-02] MEDS ORDERED: SYSTANE HYDRATI10 ML BOTHEYES (19:47)
[2020-09-02] MEDS ORDERED: MUPIROCIN15 GM TOP (19:49)
[2020-09-02 20:04] LABS: BASOPHILS ABSOLUTE AUTO 0.02 K/mm3 (0.00-0.23); BASOPHILS PERCENT AUTO 0 % (0-2); EOSINOPHILS ABSOLUTE AUTO 0.61 K/mm3 (0.00-0.68); EOSINOPHILS PERCENT AUTO 11 % (0-6); Hematocrit 31.8 % (37.0-53.0); Hemoglobin 10.3 g/dL (13.5-17.5); IMMATURE GRAN ABSOLUTE AUTO 0.01 K/mm3 (0.00-0.10); IMMATURE GRAN PERCENT AUTO 0 % (0-1); LYMPHOCYTES ABSOLUTE AUTO 1.32 K/mm3 (0.84-5.20); LYMPHOCYTES PERCENT AUTO 23 % (21-46); MONOCYTES ABSOLUTE AUTO 0.79 K/mm3 (0.16-1.47); MONOCYTES PERCENT AUTO 14 % (4-13); Mean Corpuscular HGB Conc 32.4 g/dL (31.5-36.5); Mean Corpuscular Volume 86 fL (80-100); NEUTROPHILS ABSOLUTE AUTO 3.04 K/mm3 (1.96-9.15); NEUTROPHILS PERCENT AUTO 53 % (41-73); Platelet Count 146 K/mm3 (150-400); RDW Coefficient Variation 14.2 % (11.7-14.2); RDW Standard Deviation 45.1 fL (35.1-46.3); Red Blood Cell Count 3.68 M/mm3 (4.30-5.90); White Blood Cell Count 5.79 K/mm3 (4.00-11.30)
[2020-09-02 20:23] LABS: Albumin, Blood 3.1 g/dL (3.4-5.0); Albumin/Globulin Ratio 1.1 (0.8-1.8); Bilirubin, Total 0.8 mg/dL (0.1-1.0); Bun/Creatinine Ratio 13.9 (12.0-20.0); Calcium, Blood 8.4 mg/dL (8.5-10.1); Creatinine, Blood 1.66 mg/dL (0.60-1.20); Globulin, Blood 2.8 g/dL (2.2-4.0); Potassium, Blood 4.1 mmol/L (3.5-5.5); Total Protein, Blood 5.9 g/dL (6.4-8.2)
== END 2020-09-02 23:54 | disposition home or self-care (01) ==
LOC: ER 19:23
PROVIDERS: Student in an Organized Health Care Education/Training Program
DX: S09.90XA Unspecified injury of head, initial encounter (principal); E11.22 Type 2 diabetes mellitus with diabetic chronic kidney disease; N18.30 Chronic kidney disease, stage 3 unspecified; I13.0 Hypertensive heart and chronic kidney disease with heart failure and stage 1 through stage 4 chronic kidney disease, or unspecified chronic kidney disease; I50.32 Chronic diastolic (congestive) heart failure; Z87.891 Personal history of nicotine dependence; Z79.899 Other long term (current) drug therapy; W19.XXXA Unspecified fall, initial encounter
CPT/HCPCS: 36415; 70450; 72125; 80053; 84484; 85025; 93005; 93010; 99284-25; A9270; J7030

== ENCOUNTER 2021-03-09 09:52 | Inpatient (IN) | payer OTHER ==
[~2021-03-09] VITALS: Ht 177.8 cm; Wt 60.5 kg
[~2021-03-09 09:52] MED LIST changes: +MUPIROCIN15 GM TOP; +SYSTANE HYDRATI10 ML BOTHEYES
[2021-03-09 10:27] LABS: BASOPHILS ABSOLUTE AUTO 0.01 K/mm3 (0.00-0.23); BASOPHILS PERCENT AUTO 0 % (0-2); EOSINOPHILS ABSOLUTE AUTO 0.02 K/mm3 (0.00-0.68); EOSINOPHILS PERCENT AUTO 0 % (0-6); Hemoglobin 10.8 g/dL (13.5-17.5); IMMATURE GRAN ABSOLUTE AUTO 0.14 K/mm3 (0.00-0.10); IMMATURE GRAN PERCENT AUTO 2 % (0-1); LYMPHOCYTES PERCENT AUTO 9 % (21-46); MONOCYTES ABSOLUTE AUTO 0.74 K/mm3 (0.16-1.47); MONOCYTES PERCENT AUTO 8 % (4-13); Mean Corpuscular HGB 28.6 pg (26.0-34.0); Mean Corpuscular HGB Conc 31.8 g/dL (31.5-36.5); Mean Corpuscular Volume 90 fL (80-100); Mean Platelet Volume 9.6 fL (9.1-12.4); NEUTROPHILS ABSOLUTE AUTO 7.29 K/mm3 (1.96-9.15); NEUTROPHILS PERCENT AUTO 81 % (41-73); Platelet Count 165 K/mm3 (150-400); RDW Coefficient Variation 14.6 % (11.7-14.2); RDW Standard Deviation 48.4 fL (35.1-46.3); Red Blood Cell Count 3.77 M/mm3 (4.30-5.90)
[2021-03-09 10:46] LABS: Albumin, Blood 2.1 g/dL (3.4-5.0); Albumin/Globulin Ratio 0.6 (0.8-1.8); Bilirubin, Total 1.2 mg/dL (0.1-1.0); Bun/Creatinine Ratio 24.8 (12.0-20.0); Calcium, Blood 8.6 mg/dL (8.5-10.1); Creatinine, Blood 1.37 mg/dL (0.60-1.20); Globulin, Blood 3.6 g/dL (2.2-4.0); Potassium, Blood 4.1 mmol/L (3.5-5.5); Total Protein, Blood 5.7 g/dL (6.4-8.2)
[2021-03-09 11:11] LABS: Source, Urine Catheter
[2021-03-09 11:16] LABS: Appearance, Urine Hazy (Clear); Bilirubin, Urine Neg (Neg); Blood, Urine 5+ (Neg); Color, Urine Yellow (P-Yellow); Glucose Qualitative, Urine Neg (Neg); Ketones, Urine 1+ (Neg); Leukocyte Esterase, Urine 3+ (Neg); Nitrite, Urine Pos (Neg); Protein, Urine 3+ (Neg); Urobilinogen, Urine 1+ (Normal)
[2021-03-09 11:41] LABS: Red Blood Cells, Urine 50-100 /hpf (0-2); White Blood Cells, Urine 25-50 /hpf (0-5)
[2021-03-09 11:42] LABS: Amorphous Heavy (0-Heavy); Bacteria Many /hpf; Squamous Epithelial Cells Mod /hpf (Few)
[2021-03-09] MEDS ORDERED: Lamictal150 MG PO ×2 (12:24)
[2021-03-09] MEDS ORDERED: [UNRECOGNIZED DRUG - OTHER] PO (12:27)
[2021-03-09] MEDS ORDERED: FEROSUL325 M1 PO (12:28)
[2021-03-09] MEDS ORDERED: METAMUCIL POWD575 GM PO (12:30)
[2021-03-09] MEDS ORDERED: OMEP20ER PO (12:31)
[2021-03-09] MEDS ORDERED: B-121000 MC7 PO (12:31)
[2021-03-09] MEDS ORDERED: PROBIOTIC1 EA13 PO (12:31)
--- NOTE | 2021-03-09 16:33 | NUR ---
ER ADMIT 86 Y MALE ADMITTED FOR COVID AND UTI. PT LIVES AT [facility] AND WAS BROUGHT IN BY AMBULANCE FOR C/O SOB, AMS X 2DAYS. PT WAS COVID+ IN ER AND TX FOR UTI AND DEHYDRATION. REPORTS RECIEVED FROM [facility]. ON ARRIVAL TO MEDICAL FLOOR PT IS ALERT AND CONFUSED WITH GARBLED SPEACH. PT WAS A TOTAL LIFT TRANSFER FROM [facility] TO BED. PT DOES NOT APPEAR SOB, SATS 94% ON 5L O2 VIA N/C. SKIN ASSESSED TO BE P/W/D AND INTACT. PT ORIENTED TO ROOM, BED, CALL LIGHT SYSTEM. BED IN LOWEST POSITION, EXIT ALARM ENGAGED AND CALL LIGHT WITHIN REACH.
--- NOTE | 2021-03-09 17:59 | NUR ---
1745 CALLED CAREGIVER SATURNINO W/ UPDATE OF PT. CAREGIVER STATES PT IS A ASPIRATION RISK AND USES NECTAR THICK FLUIDS. CAREGIVER STATES PT IS A FEEDER AND NEEDS HELP W/ MEALS.
--- NOTE | 2021-03-10 05:46 | NUR ---
SHIFT SUMMARY A/O TO SELF ONLY, GARBLED SPEECH, ANXIOUS T/O SHIFT. BEDREST AND SWALLOWING PRECAUTIONS. UNILATERAL R. SOFT WRIST RESTRAINT IN PLACE TO PROTECT IV LINES TO L. FOREARM. LUNGS COARSE T/O WITH CRACKLES TO BILATERAL BASES. WEAK, WET COUGH NOTED. CURRENTLY ON 4L VIA NC, CONT. BIOX IN PLACE WITH SATS GREATER THAN 92. KWONG PATENT AND DRAINING TO GRAVITY. VSS, BED IN LOWEST POSITION WITH ALARM ON AND CALL LIGHT IN REACH. WILL CONTINUE TO MONITOR AND REPORT TO ONCOMING RN.
[2021-03-10 05:50] LABS: BASOPHILS ABSOLUTE AUTO 0.01 K/mm3 (0.00-0.23); BASOPHILS PERCENT AUTO 0 % (0-2); EOSINOPHILS PERCENT AUTO 0 % (0-6); Hematocrit 29.5 % (37.0-53.0); Hemoglobin 9.5 g/dL (13.5-17.5); IMMATURE GRAN ABSOLUTE AUTO 0.14 K/mm3 (0.00-0.10); IMMATURE GRAN PERCENT AUTO 2 % (0-1); LYMPHOCYTES ABSOLUTE AUTO 0.98 K/mm3 (0.84-5.20); LYMPHOCYTES PERCENT AUTO 12 % (21-46); MONOCYTES ABSOLUTE AUTO 0.62 K/mm3 (0.16-1.47); MONOCYTES PERCENT AUTO 8 % (4-13); Mean Corpuscular HGB 28.5 pg (26.0-34.0); Mean Corpuscular HGB Conc 32.2 g/dL (31.5-36.5); Mean Corpuscular Volume 89 fL (80-100); Mean Platelet Volume 9.3 fL (9.1-12.4); NEUTROPHILS ABSOLUTE AUTO 6.47 K/mm3 (1.96-9.15); NEUTROPHILS PERCENT AUTO 79 % (41-73); Platelet Count 177 K/mm3 (150-400); RDW Coefficient Variation 14.6 % (11.7-14.2); RDW Standard Deviation 47.2 fL (35.1-46.3); Red Blood Cell Count 3.33 M/mm3 (4.30-5.90); White Blood Cell Count 8.22 K/mm3 (4.00-11.30)
[2021-03-10 06:20] LABS: Albumin, Blood 1.8 g/dL (3.4-5.0); Albumin/Globulin Ratio 0.5 (0.8-1.8); Bilirubin, Total 0.6 mg/dL (0.1-1.0); Bun/Creatinine Ratio 25.2 (12.0-20.0); Creatinine, Blood 1.31 mg/dL (0.60-1.20); Globulin, Blood 3.4 g/dL (2.2-4.0); Magnesium, Blood 2.1 mg/dL (1.6-2.4); Potassium, Blood 4.2 mmol/L (3.5-5.5); Total Protein, Blood 5.2 g/dL (6.4-8.2)
[2021-03-10 12:29] LABS: Ferritin, Serum 363 ng/mL (26-388); Iron Serum 14 ug/dL (65-175); Percent Saturation 13.2 % (20.0-50.0); Total Iron Binding Capacity 106 ug/dL (250-450)
[2021-03-10 12:31] LABS: C-REACTIVE PROTEIN, EXT RANGE >19.000 mg/dL (0.000-0.300)
[2021-03-10 14:12] LABS: Source, Urine Catheter
[2021-03-10 14:17] LABS: Appearance, Urine Hazy (Clear); Bilirubin, Urine Neg (Neg); Blood, Urine 5+ (Neg); Color, Urine Yellow (P-Yellow); Glucose Qualitative, Urine Neg (Neg); Ketones, Urine 2+ (Neg); Leukocyte Esterase, Urine 3+ (Neg); Nitrite, Urine Neg (Neg); Protein, Urine 3+ (Neg); Urobilinogen, Urine NORM (Normal)
[2021-03-10 14:25] LABS: Bacteria Mod /hpf; Hyaline Casts Rare /lpf (0-2); Squamous Epithelial Cells Few /hpf (Few); White Blood Cells, Urine 25-50 /hpf (0-5)
--- NOTE | 2021-03-10 16:08 | NUR ---
SHIFT SUMMARY PT IS AO TO SELF AND FAMILY. PT DENIES PAIN, N/V, SOB. PT IS CONFUSED. KWONG CATHETER REMOVED THIS SHIFT AND PT IS INCONTINENT WITH VOIDS-CONDOM CATHETER IN PLACE. UA SENT VIA STRAIGHT CATH. PT IS ON BEDREST AND DOES NOT FOLLOW COMMANDS. THIS RN GAVE UPDATE TO CAREGIVER ASHLEY VIA PHONE. PT IS IN BED, CALL LIGHT IN REACH, LOW POSITION. THIS RN WILL CONTINUE TO MONITOR PT STATUS UNTIL HAND OFF TO NIGHT RN.
--- NOTE | 2021-03-10 22:54 | NUR ---
Patient awake and pleasant. unable to follow commands. still in wrist restraints and pulling at them. Jurgen is unable to clear his secretions tonight after oral care with suction. Concern for patient's ability to safely clear and PO medications or nutrition without immediate suction. In addition, patient appears extremely dehydrated. Tongue is red and fissured. Request to be made for continuous fluids. Call placed to hospitalist to inform.
--- NOTE | 2021-03-11 10:19 | NUR ---
STRAIGHT CATH/UA ORDER THIS RN RECEIVED VERBAL ORDERS FROM TO MARÍA KWONG CATHETER AND STRAIGHT CATH PT FOR URINE CULTURE ON 03/10/21. THIS RN PROCEEDED WITH ORDERS, BUT ENTERED VERBAL ORDERS INTO THE COMPUTER TODAY, DESPITE SERVICES BEING ADMINISTERED ON 03/10/21. PT IS IN BED, CALL LIGHT IN REACH, LOW POSITION.
--- NOTE | 2021-03-11 13:47 | NUR ---
Case Conference Note 86 years old male admitted to the hospital for BOBBI, UTI, and is COVID 19 Positive. Pt's medical history and comorbidities include: Parksinson's Disease, Parkinson's Dementia, CHF, DM, Recurrent UTIs, Anemia, CKD3, Essental Tremors, BPH, HTN, and Bipolar Disorder. Spoke with Dr Arriaga and discussed case. Pt has reached end stage and would benenfit from hospice services. Spoke with Pt's Primary RN Magda, GOMEZ Espinosa, and discussed case. Pt PO intake is poor and minimal. Pt significantly confused and requires assistance with all ADLs including assistance with feeding. Pt is incontinent of bowel and bladder. Called and spoke with Pt's caregiver Radha. Radha reports Pt's sister is on hospice services and only has 24 to 48 hours of life to live. Obtained Pt's niece Randi's phone number and Pt's casemanager Marisela for [facility]. Called and spoke with Pt's niece in law who reports being to Pt's nephew Glenroy. Randi reports Pt has a sister Maame who lives in [place] but does not want any responsibility towards Pt. Randi confirms Pt's sister Allyson is iminent on hospice. Randi reports being under the impression that Pt is "A lee of the State". Called and spoke with Pt's Caselalaager Marisela with [facility]. Marisela reports Pt is not a lee of the state but team with [facility] are in the process of establishing a healthcare advocate for Pt. With advocate in place and the rest of team healthcare decisions can be made. The planned healthcare decision maker will be Jennifer Cedillo a friend and previous caregiver of Pt. Provided update and recommendations. Marisela reports team being aware and will be in agreement with hospice services. Called and spoke with Jennifer who confirms plan. Answered questions and offered therapeutic listening. Healthcare decision maker will be in place by end of day today or tomorrow. Jennifer Cedillo [phone] Marisela Villanueva Anna [phone] Niece in Law Randi [phone] PPS 40% ADLs 6/6 FAST 7C Palliative Care will remain available.
--- NOTE | 2021-03-11 16:06 | NUR ---
SHIFT SUMMARY PT IS AO TO SELF. PT REPEATS PHRASES WITH STAFF AND DOES NOT ANSWER QUESTIONS. PT DENIES PAIN, N/V, SOB. PT IS ON RA WITH SATS 90-94%. ENHANCED ISOLATION PRECUATIONS MAINTAINED T/O SHIFT. PT APPETITE IS POOR AND PT CONTINUED TO COUGH AFTER EATING. ST EVALUATED PT AND DEEMED PT UNSAFE TO HAVE PO INTAKE-PT IS NOW NPO. PT HEALTHCARE ADVOCATE, MARCELO, IN TO SEE PT WITH PLANS FOR A MEETING TOMORROW TO DECIDE ON CODE STATUS. BILATERAL WRIST RESTRAINTS REMAIN IN PLACE TO PROTECT SKIN AND IV LINE FOR ABX AND FLUIDS. PT IS IN BED, CALL LIGHT IN REACH, LOW POSITION.
--- NOTE | 2021-03-12 02:49 | NUR ---
COMPUTER AIDED DESIGN DESIGNER SUMMARY AWAKE INTERMITTENTLY THROUGH SHIFT WITH WET COUGH. RECEIVED DOSE OF REMDESIVIR IV FOR COVID 19 TREATMENT. BILATERAL WRIST RESTRAINTS CONTINUE PT CONTINUES TO ATTEMPT TO PULL OUT IV AND DOES NOT REDIRECT. CONTINUOUS PULSE OX - 90'S SATS. REMAINS NPO DUE TO FAILED SWALLOW STUDY YESTERDAY. IVF INFUSING FOR HYDRATION, ETC. SEE MAR FOR DETAILS. ISOLATION PRECAUTIONS MAINTAINED. CALL LIGHT IN REACH.
[2021-03-12 05:41] LABS: BASOPHILS ABSOLUTE AUTO 0.01 K/mm3 (0.00-0.23); BASOPHILS PERCENT AUTO 0 % (0-2); EOSINOPHILS ABSOLUTE AUTO 0.02 K/mm3 (0.00-0.68); EOSINOPHILS PERCENT AUTO 0 % (0-6); Hemoglobin 8.4 g/dL (13.5-17.5); IMMATURE GRAN ABSOLUTE AUTO 0.14 K/mm3 (0.00-0.10); IMMATURE GRAN PERCENT AUTO 2 % (0-1); LYMPHOCYTES ABSOLUTE AUTO 0.74 K/mm3 (0.84-5.20); LYMPHOCYTES PERCENT AUTO 10 % (21-46); MONOCYTES ABSOLUTE AUTO 0.61 K/mm3 (0.16-1.47); MONOCYTES PERCENT AUTO 9 % (4-13); Mean Corpuscular HGB 28.6 pg (26.0-34.0); Mean Corpuscular HGB Conc 32.3 g/dL (31.5-36.5); Mean Corpuscular Volume 88 fL (80-100); Mean Platelet Volume 8.9 fL (9.1-12.4); NEUTROPHILS ABSOLUTE AUTO 5.58 K/mm3 (1.96-9.15); NEUTROPHILS PERCENT AUTO 79 % (41-73); Platelet Count 165 K/mm3 (150-400); RDW Coefficient Variation 14.7 % (11.7-14.2); RDW Standard Deviation 48.1 fL (35.1-46.3); Red Blood Cell Count 2.94 M/mm3 (4.30-5.90)
[2021-03-12 06:10] LABS: Albumin, Blood 1.6 g/dL (3.4-5.0); Albumin/Globulin Ratio 0.5 (0.8-1.8); Bilirubin, Total 0.4 mg/dL (0.1-1.0); Bun/Creatinine Ratio 23.3 (12.0-20.0); Creatinine, Blood 1.29 mg/dL (0.60-1.20); Potassium, Blood 3.6 mmol/L (3.5-5.5); Total Protein, Blood 4.6 g/dL (6.4-8.2)
--- NOTE | 2021-03-12 11:43 | NUR ---
Case Conference Note Received call from Jennifer Cedillo who reports documents are complete and she has been appointed Pt's healthcare advocate and decision maker. She and the team at [facility] are in agreeement for Pt to start comfort measures only and D/C to [facility] [facility] with hospice services. She will bring in copy of healthcare in store representative document. Spoke with Dr Sun, Brim Buster Swapna, and Primary RN Jhoana. Placed comfort care order and comfort care order set per V/O from Dr Arriaga. Continued maintenance medications as Pt is not imminent. Will meet with Jennifer when she arrives to complete POLST and obtain copy of healthcare in store representative document.
--- NOTE | 2021-03-12 13:05 | NUR ---
PT IV D\C, ORDERED FOR COMFORT CARE. RESTRAINT D/C, BED ALARM IN PLACE, CALL LIGHT WITHIN REACH. MONITORING CONT.
--- NOTE | 2021-03-12 13:58 | NUR ---
Met with Pt's healthcare advocate Jennifer outside of Pt's room. Offered therapeutic listening and answered questions. Jennifer signs Pt's POLST with Pt's wishes to be DNR and Comfort Measures Only. Continued therapeutic listening. Jennifer expresses appreciation and reports no other concerns at this time. Obtained copy of "Appointment of Healthcare Advocacy". Delivered documents to medical records. Palliative Care will remain available.
[2021-03-12] MEDS ORDERED: ATROPINE SULFATE2 M1 SL (15:54)
[2021-03-12] MEDS ORDERED: MORP20L SL (15:55)
[2021-03-12] MEDS ORDERED: PROM25 PO (15:56)
[2021-03-12] MEDS ORDERED: Ativan1 MG PO (15:57)
--- NOTE | 2021-03-12 17:35 | NUR ---
PT D/C TO [facility] ON COMFORT CARE, REPORT CALLED IN TO RECIEVING NURSE. PT PICKED BY EMS AT 1600. NO DISTRESS NOTED,VITALS STABLE.
== END 2021-03-12 16:04 | DRG 177 ==
LOC: ER 09:52 → MEDS 14:48
PROVIDERS: Nurse Practitioner Acute Care; Physician Assistant; ADMIT Internal Medicine
PROC: XW033E5 Introduction of Remdesivir Anti-infective into Peripheral Vein, Percutaneous Approach, New Technology Group 5 (ICD-10-PCS; 2021-03-09)
PROC: 8E0ZXY6 Isolation (ICD-10-PCS; 2021-03-09)
PROC: 3E0333Z Introduction of Anti-inflammatory into Peripheral Vein, Percutaneous Approach (ICD-10-PCS; principal; 2021-03-10)
DX: U07.1 COVID-19 (principal); J96.21 Acute and chronic respiratory failure with hypoxia; G92.8 Other toxic encephalopathy; J12.82 Pneumonia due to coronavirus disease 2019; J15.9 Unspecified bacterial pneumonia; N39.0 Urinary tract infection, site not specified; N17.9 Acute kidney failure, unspecified; E44.0 Moderate protein-calorie malnutrition; I50.32 Chronic diastolic (congestive) heart failure; I13.0 Hypertensive heart and chronic kidney disease with heart failure and stage 1 through stage 4 chronic kidney disease, or unspecified chronic kidney disease; Z68.1 Body mass index [BMI] 19.9 or less, adult; N18.30 Chronic kidney disease, stage 3 unspecified; K21.9 Gastro-esophageal reflux disease without esophagitis; Z79.899 Other long term (current) drug therapy; G20 Parkinson's disease; F02.80 Dementia in other diseases classified elsewhere, unspecified severity, without behavioral disturbance, psychotic disturbance, mood disturbance, and anxiety; Z66 Do not resuscitate; R62.7 Adult failure to thrive; D50.9 Iron deficiency anemia, unspecified; N40.0 Benign prostatic hyperplasia without lower urinary tract symptoms; E11.22 Type 2 diabetes mellitus with diabetic chronic kidney disease; F31.9 Bipolar disorder, unspecified; I34.0 Nonrheumatic mitral (valve) insufficiency; Z87.891 Personal history of nicotine dependence
CPT/HCPCS: 36415; 51702; 71045; 80053; 80175; 81001; 82728; 82947; 83540; 83550; 83605; 83735; 84145; 85025; 86140; 87040; 87077; 87086; 87186; 92610; 93005; 93010; 94762; 96365; 96375; 99285-25; A9270; J0456; J0696; J1100; J1650; J7030; J7050; J7120